=== PATIENT | male | born 1985 | race Two or more races ===

== ENCOUNTER 2018-03-31 07:58 | Emergency (ER) | payer SELFPAY ==
[~2018-03-31] VITALS: Ht 172.7 cm; Wt 88.0 kg
--- NOTE | 2018-03-31 08:05 | NUR ---
PT BIBSELF WITH LEFT SIDE CHEST PAIN/DISCOMFORT. PT CHECKED BP AT HOME AFTER WORK THIS MORNING AND IT WAS "HIGH". PT DENIES HX OF HYPERTENSION. PT IS AOX4. RESP EVEN AND UNLABORED. WILL CONTINUE TO MONITOR.
--- NOTE | 2018-03-31 08:15 | NUR ---
TECH AT BEDSIDE FOR EKG
--- NOTE | 2018-03-31 08:18 | NUR ---
PHLEB AT BEDSIDE FOR LABS
--- NOTE | 2018-03-31 08:24 | NUR ---
RADIOLOGY AT BEDSIDE FOR CXR
[2018-03-31 08:36] LABS: BASOPHILS # (AUTO) 0.1 /CMM (0.0-0.2); BASOPHILS % (AUTO) 1.2 % (0.0-2.0); HEMATOCRIT 46 % (39-51); HEMOGLOBIN 16.1 g/dL (13.5-17.5); LYMPHOCYTES # (AUTO) 3.3 /CMM (0.8-4.8); MEAN CORPUSCULAR HGB CONC 35 g/dl (31.0-36.0); MEAN CORPUSCULAR VOLUME 90 fL (80-96); MONOCYTES # (AUTO) 0.7 /CMM (0.1-1.30); NEUTROPHILS # (AUTO) 5.7 /CMM (1.8-8.9); NEUTROPHILS % (AUTO) 56.8 % (43.0-81.0); PLATELET COUNT (AUTO) 217 /CMM (150-450); RED BLOOD CELL COUNT(AUTO) 5.09 MIL/uL (4.5-6.0)
[2018-03-31 08:45] LABS: CALCIUM, SERUM 9.6 mg/dL (8.5-10.1); CARBON DIOXIDE 27 mmol/L (21-32); CHLORIDE 102 mmol/L (98-107); GLUCOSE 96 mg/dL (74-106); POTASSIUM 3.3 mmol/L (3.5-5.1); SODIUM SERUM 142 mmol/L (136-145); UREA NITROGEN, BLOOD 13 mg/dL (7-18)
[2018-03-31 08:51] LABS: ALANINE AMINOTRANSFERASE 35 U/L (12-78); ALBUMIN 4.5 g/dL (3.4-5.0); ALKALINE PHOSPHATASE 68 U/L (46-116); ASPARTATE AMINOTRANSFERASE 23 U/L (15-37); BILIRUBIN,DIRECT 0.2 mg/dL (0.0-0.2); BILIRUBIN,TOTAL 1.1 mg/dL (0.2-1.0); TOTAL PROTEIN, SERUM 8.4 g/dL (6.4-8.2)
--- NOTE | 2018-03-31 09:21 | NUR ---
Patient discharged to home in stable condition. Written and verbal after care instructions given. Patient verbalizes understanding of instruction.
[2018-03-31 09:22] VITALS: BP 174/107
== END 2018-03-31 09:23 | disposition home or self-care (01) ==
LOC: ER 08:00
DX: R07.89 Other chest pain (principal)
CPT/HCPCS: 36415; 71045-TC; 80048-TC; 80076-TC; 84484-TC; 85025-TC; 85730-TC; A4606; Z7610